=== PATIENT | female | born 1960 | race Caucasian/White ===

== ENCOUNTER 2023-05-06 02:00 | Emergency (ER) | payer BC, OTHER ==
[2023-05-06 02:57] VITALS: BP 180/99
[2023-05-06] MEDS ORDERED: FAMOTIDINE 20 MG TABLET PO ONE (03:00)
[2023-05-06] MEDS ORDERED: dexAMETHasone INJ 10 MG/ML 1 ML VIAL IM ONE (03:00)
== END 2023-05-06 02:57 | disposition home or self-care (01) ==
LOC: ER 02:05
DX: L25.9 Unspecified contact dermatitis, unspecified cause (principal); I10 Essential (primary) hypertension